=== PATIENT | male | born 1955 | race African-American/Black ===

== ENCOUNTER 2017-02-03 07:15 | Outpatient (CLI) | payer OTHER ==
--- NOTE | 2017-02-03 09:28 | ULT ---
EXAM: RENAL ULTRASOUND: COMPARISON: 07/20/16. HISTORY: Renal calculi. Followup examination. TECHNIQUE: Longitudinal and transverse imaging of the kidneys is performed. FINDINGS: RIGHT KIDNEY: Normal cortical echotexture. No hydronephrosis. The right kidney measures 11.9 x 6.1 x 5.2 cm. There is an anechoic focus emanating from the lower pole of the right kidney which may represent a s mall cyst measuring 1.4 x 1.0 x 1.1 cm. LEFT KIDNEY: Normal cortical echotexture. No hydronephrosis. The left kidney measures 11.6 x 5.5 x 4.5 cm. There is mass effect upon the floor of the urinary bladder due to enlarged prostate gland which nathan ures 6.6 x 5.1 x 5.5 cm. The urinary bladder mucosal is unremarkable. IMPRESSION: 1. No hydronephrosis. 2. Small cyst emanating from the lower pole of the right kidney. 3. Enlarged prostate gland. POS: [facility]
--- NOTE | 2017-02-03 09:41 | RAD ---
AP ABDOMINAL RADIOGRAPH: DATE: 02/03/17. HISTORY: Renal calculi and incomplete emptying of the urinary bladder. COMPARISON: 07/20/16. FINDINGS: No suspicious calcifications are seen overlying the expected location of the renal collecting system s or either ureter. Renal shadows are mostly obscured by overlying bowel and retained fecal materia l in the colon. Vascular calcifications are seen in the abdominal aorta and involving the iliac and femoral arteries. The bowel gas pattern is overall nonspecific. There has been no interval change compared to the prior exam. IMPRESSION: 1. No suspicious calcifications are seen to suggest renal or ureteral calculi on this exam. 2. A small to moderate amount of retained fecal material is seen throughout the colon, but the nj l gas pattern is otherwise nonspecific. POS: [facility]
== END 2017-02-03 07:16 | disposition home or self-care (01) ==
LOC: RAD 07:15
PROVIDERS: ATTEND Urology
DX: N20.0 Calculus of kidney (principal); N28.1 Cyst of kidney, acquired; K59.00 Constipation, unspecified; R33.9 Retention of urine, unspecified
CPT/HCPCS: 36415; 74000; 76770; 80048; 81001; 82570; 84153; 84156; 87086

== ENCOUNTER 2017-02-17 12:43 | Emergency (ER) | payer OTHER ==
--- NOTE | 2017-02-17 13:40 | RAD ---
RIGHT KNEE FOUR VIEWS: HISTORY: Knee pain. FINDINGS: Mild degenerative change. Joint spaces are preserved. No fracture. No joint effusion seen. IMPRESSION: Very mild degenerative changes are noted. POS: [facility]
[2017-02-17] MEDS ORDERED: HYDROcodone/Acetaminophen 10/325 mg Tablet ONE (14:08)
== END 2017-02-17 14:15 | disposition home or self-care (01) ==
LOC: ERS 12:43
DX: M25.461 Effusion, right knee (principal); E11.9 Type 2 diabetes mellitus without complications; E78.5 Hyperlipidemia, unspecified; I10 Essential (primary) hypertension; Z87.442 Personal history of urinary calculi

== ENCOUNTER 2017-09-23 21:29 | Emergency (ER) | payer BC | END 2017-09-23 21:45 | disposition home or self-care (01) | LOC: ERS 21:29 | DX: B02.9 Zoster without complications (principal); E11.9 Type 2 diabetes mellitus without complications; E78.5 Hyperlipidemia, unspecified; I10 Essential (primary) hypertension; Z79.899 Other long term (current) drug therapy | CPT/HCPCS: 99282 ==

== ENCOUNTER 2017-11-15 16:20 | Outpatient (CLI) | payer BC ==
--- NOTE | 2017-11-15 17:52 | RAD ---
ABDOMEN 1 VIEW: Date: 11/15/17 HISTORY: Abdominal pain. Renal stones. COMPARISON: 02/03/17. FINDINGS: Large amount of stool throughout the colon and rectum. Renal outlines, predominantly obscured. No uri nary tract calcifications are reliably demonstrated. Calcification over the vascular structures. IMPRESSION: 1. Constipation. 2. Atherosclerosis. POS: [facility]
== END 2017-11-15 16:21 | disposition home or self-care (01) ==
LOC: RAD 16:20
PROVIDERS: ATTEND Urology
DX: N20.0 Calculus of kidney (principal); N40.1 Benign prostatic hyperplasia with lower urinary tract symptoms; I70.90 Unspecified atherosclerosis; K59.00 Constipation, unspecified
CPT/HCPCS: 74018

== ENCOUNTER 2017-11-25 10:15 | Outpatient (CLI) | payer BC ==
--- NOTE | 2017-11-25 11:34 | ULT ---
RENAL SONOGRAM: HISTORY: Renal cyst. Chronic renal insufficiency. COMPARISON: 02/03/2017 FINDINGS: On today's exam, the right kidney is 12.4 cm. A 1.4 cm cyst along the lateral margin is stable. No hydronephrosis or solid mass. The left kidney is 12.3 cm without evidence of mass, stone, or hydronephrosis. The urinary bladder is decompressed. The prostate gland is enlarged and protrudes into the bladder b ase. IMPRESSION: 1. No evidence of upper urinary tract obstruction. Small right renal cyst is stable. 2. Enlarged prostate gland. POS: [facility]
== END 2017-11-25 10:16 | disposition home or self-care (01) ==
LOC: ULT 10:15
PROVIDERS: ATTEND Urology
DX: N18.9 Chronic kidney disease, unspecified (principal); N28.1 Cyst of kidney, acquired; N40.0 Benign prostatic hyperplasia without lower urinary tract symptoms
CPT/HCPCS: 76770

== ENCOUNTER 2018-01-07 13:17 | Emergency (ER) | payer BC ==
[2018-01-07 14:24] LABS: #Basophils 0.1 thou/uL (0.0-0.2); #Eosinphils 0.4 thou/uL (0.0-0.7); #Lymphocytes 2.8 thou/uL (1.20-3.40); #Monocytes 0.5 thou/uL (0.11-0.59); #Neutrophils 3.7 thou/uL (1.40-6.50); %Basophils 0.9 % (0.0-1.0); %Eosinophils 4.9 % (0.0-10.0); %Monocytes 7.1 % (0.0-10.0); %Neutrophils 50.1 % (42.0-75.0); Hemoglobin 12.1 g/dL (14.0-18.0); Mean Corpuscular HGB CONC 32.8 g/dL (32.0-36.0); Mean Corpuscular Volume 91.3 fL (78.0-98.0); Mean Platelet Volume 8.8 fL (7.4-10.4); Platelet Count 260 thou/uL (130-400); RBC Distribution Width 12.7 % (11.5-14.5); Red Blood Cell (RBC) Count 4.03 mill/uL (4.70-6.10); White Blood Cell (WBC) Count 7.5 thou/uL (4.8-10.8)
[2018-01-07 14:42] LABS: Bilirubin Negative (Negative); Blood, Urine Negative (Negative); Clarity CLEAR (Clear); Glucose, Urine (Dipstick) Negative (Negative); Leukocyte Negative (Negative); Nitrite Negative (Negative); Protein, Urine (Dipstick) 300 mg/dL (Neg-Trace); Specific Gravity, Urine 1.018 (1.002-1.036); Urobilinogen 0.2 mg/dL (0.2-1.0)
[2018-01-07 14:45] LABS: Bacteria/HPF None Seen HPF (None Seen); Hyaline Casts/LPF 0-3 HYALINE CAST LPF (0-3 Hyaline); Pathc Cast-AUWi Flag 0.58 (0-2.49); RBC/HPF 0-3 HPF (0-3); Squamous Epithelial 0-3 HPF (0-3); WBC/HPF 0-3 HPF (0-3)
[2018-01-07 14:46] LABS: ALT (SGPT) 17 U/L (8-55); AST (SGOT) 18 U/L (5-34); Albumin 3.8 g/dL (3.4-4.8); Alkaline Phosphatase 67 U/L (40-150); Anion Gap 13 mmol/L (10-20); BUN (Urea Nitrogen) 34 mg/dL (8.4-25.7); Bilirubin, Total 0.3 mg/dL (0.2-1.2); CK (CPK) 185 U/L (30-200); Calc. Creatinine Clearance 0 mL/min (70-130); Calcium 9.5 mg/dL (7.8-10.44); Carbon Dioxide 19 mmol/L (23-31); Chloride 108 mmol/L (98-107); Estimated GFR-MDRD 34; Globulin 3.5 g/dL (2.4-3.5); Glucose 178 mg/dL (80-115); Protein, Total 7.3 g/dL (5.8-8.1); Sodium 136 mmol/L (136-145)
[2018-01-07 14:52] LABS: CKMB 1.5 ng/mL (0-6.6); Troponin I 0.011 ng/mL (< 0.028)
--- NOTE | 2018-01-07 15:15 | RAD ---
ONE VIEW CHEST: HISTORY: Pain. COMPARISON: None. FINDINGS: Normal cardiac silhouette. The pulmonary vessels and hilum are normal. Costophrenic angles are lon r. The pulmonary vessels and hilum are normal. Costophrenic angles are clear. No consolidation or mass. No pneumothorax or osseous abnormalities. IMPRESSION: No acute cardiopulmonary process. POS: [facility]
== END 2018-01-07 15:10 | disposition home or self-care (01) ==
LOC: ERS 13:17
DX: S29.012A Strain of muscle and tendon of back wall of thorax, initial encounter (principal); E11.9 Type 2 diabetes mellitus without complications; E78.5 Hyperlipidemia, unspecified; I10 Essential (primary) hypertension; Z87.442 Personal history of urinary calculi; Z79.891 Long term (current) use of opiate analgesic; Z79.899 Other long term (current) drug therapy
CPT/HCPCS: 36415; 71045; 80053; 81003; 81015; 82550; 82553; 84443; 84484; 85025; 93005

== ENCOUNTER 2018-07-05 15:20 | Emergency (ER) | payer BC | END 2018-07-05 18:59 | disposition left against medical advice (07) | LOC: ERS 15:20 | DX: Z53.21 Procedure and treatment not carried out due to patient leaving prior to being seen by health care provider (principal) ==

== ENCOUNTER 2018-11-16 11:33 | Emergency (ER) | payer BC ==
[2018-11-16 12:26] LABS: #Eosinphils 0.5 thou/uL (0.0-0.7); #Lymphocytes 2.1 thou/uL (1.20-3.40); #Monocytes 0.5 thou/uL (0.11-0.59); #Neutrophils 4.8 thou/uL (1.40-6.50); %Basophils 0.5 % (0.0-1.0); %Eosinophils 6.6 % (0.0-10.0); %Lymphocytes 26.4 % (21.0-51.0); %Monocytes 6.4 % (0.0-10.0); %Neutrophils 60.1 % (42.0-75.0); Hemoglobin 11.5 g/dL (14.0-18.0); Mean Corpuscular HGB CONC 33.4 g/dL (32.0-36.0); Mean Corpuscular Hemoglobin 28.5 pg (27.0-31.0); Mean Corpuscular Volume 85.4 fL (78.0-98.0); Mean Platelet Volume 8.4 fL (7.4-10.4); Platelet Count 242 thou/uL (130-400); RBC Distribution Width 12.8 % (11.5-14.5); Red Blood Cell (RBC) Count 4.03 mill/uL (4.70-6.10)
[2018-11-16] MEDS ORDERED: Metoprolol Tartrate 25 MG TAB ONE (12:26)
[2018-11-16] MEDS ORDERED: hydrALAZINE 25 MG TAB ONE (12:26)
[2018-11-16 12:56] LABS: ALT (SGPT) 16 U/L (8-55); AST (SGOT) 20 U/L (5-34); Albumin 3.2 g/dL (3.4-4.8); Alkaline Phosphatase 84 U/L (40-150); Anion Gap 11 mmol/L (10-20); BUN (Urea Nitrogen) 30 mg/dL (8.4-25.7); Bilirubin, Total 0.2 mg/dL (0.2-1.2); Calc. Creatinine Clearance 0 mL/min (70-130); Calcium 8.8 mg/dL (7.8-10.44); Carbon Dioxide 22 mmol/L (23-31); Chloride 109 mmol/L (98-107); Estimated GFR-MDRD 32; Globulin 2.8 g/dL (2.4-3.5); Glucose 219 mg/dL (80-115); Potassium 3.9 mmol/L (3.5-5.1); Sodium 138 mmol/L (136-145)
--- NOTE | 2018-11-16 13:02 | RAD ---
RADIOGRAPH CHEST 1 VIEW: DATE: 11/16/18 HISTORY: 63-year-old male with chest pain. FINDINGS: There are no air space densities, pulmonary edema, pneumothorax, or cardiomegaly. The lateral costop hrenic angles are sharp. IMPRESSION: No acute cardiopulmonary findings. tarun [] POS: [facility]
[2018-11-16 13:58] LABS: Bilirubin Negative (Negative); Blood, Urine Trace (Negative); Clarity Clear (Clear); Glucose, Urine (Dipstick) 250 mg/dL (Negative); Leukocyte Negative (Negative); Nitrite Negative (Negative); Protein, Urine (Dipstick) > or equal to 300 mg/dL (Neg-Trace); Urobilinogen 0.2 mg/dL (Less than 2)
[2018-11-16 14:05] LABS: Bacteria/HPF None Seen HPF (None Seen); RBC/HPF 0-3 HPF (0-3); Squamous Epithelial 0-3 HPF (0-3); WBC/HPF None Seen HPF (0-3)
== END 2018-11-16 14:14 | disposition home or self-care (01) ==
LOC: ERS 11:33
DX: E11.65 Type 2 diabetes mellitus with hyperglycemia (principal); I10 Essential (primary) hypertension; E78.5 Hyperlipidemia, unspecified; Z79.899 Other long term (current) drug therapy; Z79.82 Long term (current) use of aspirin
CPT/HCPCS: 36415; 36416; 71045; 80053; 81003; 81015; 83690; 84484; 85025; 93005

== ENCOUNTER 2019-07-06 10:06 | Outpatient (CLI) | payer BC ==
--- NOTE | 2019-07-06 11:31 | RAD ---
RIGHT KNEE 3 VIEWS: HISTORY: Generalized osteoarthritis, right knee pain. FINDINGS/IMPRESSION: Mild degenerative changes are present. No fracture, dislocation, or bony destruction is identified. POS: [facility]
--- NOTE | 2019-07-06 11:32 | RAD ---
LEFT KNEE 3 VIEWS: HISTORY: Generalized osteoarthritis and left knee pain. FINDINGS/IMPRESSION: Minimal degenerative changes are present. No fracture, dislocation, or bony destruction is seen. POS: [facility]
== END 2019-07-06 10:07 | disposition home or self-care (01) ==
LOC: RAD 10:06
PROVIDERS: ATTEND Internal Medicine Nephrology
DX: M17.0 Bilateral primary osteoarthritis of knee (principal); R97.20 Elevated prostate specific antigen [PSA]; N18.9 Chronic kidney disease, unspecified; N20.0 Calculus of kidney; N28.1 Cyst of kidney, acquired
CPT/HCPCS: 36415; 80048; 81001; 87086

== ENCOUNTER 2019-10-05 07:30 | Outpatient (CLI) | payer BC ==
--- NOTE | 2019-10-05 08:15 | RAD ---
MRI clearance study: Radiograph skull one view: 10/05/2019 HISTORY: 64-year-old male scheduled for MRI with history of metal exposure. FINDINGS: Single Simental' view demonstrates no metallic foreign body overlying the orbits. IMPRESSION: No evidence of contraindication for MRI
--- NOTE | 2019-10-05 08:52 | MRI ---
MRI LEFT KNEE: DATE: 10/05/2019. PROVIDED CLINICAL HISTORY: Pain. FINDINGS: The anterior cruciate ligament, posterior cruciate ligament, medial collateral ligament, and lateral collateral ligamentous complex demonstrate an intact MR appearance, as does the extensor mechanism. There is a complex nondisplaced tear involving the body of the medial meniscus, having a primarily ob lique morphology. The lateral meniscus demonstrates no evidence for a tear. No focal articular cartilage defect is apparent. There is a large knee joint effusion with evidence for ruptured Hadley's cyst. No focal concerning regional marrow or muscular signal abnormality apparent. There is extensive noncircumscribed fluid signal intensity within the subcutaneous adipose layer abou t the visualized proximal foreleg, presumably lymphedema. IMPRESSION: 1. Medial meniscal tear. 2. Large knee joint effusion with ruptured Hadley's cyst. POS: [facility]
== END 2019-10-05 07:31 | disposition home or self-care (01) ==
LOC: BICMRI 07:30
PROVIDERS: ATTEND Orthopaedic Surgery
DX: M23.92 Unspecified internal derangement of left knee (principal); S83.242A Other tear of medial meniscus, current injury, left knee, initial encounter; M66.0 Rupture of popliteal cyst; M25.462 Effusion, left knee
CPT/HCPCS: 70210

== ENCOUNTER 2019-11-07 06:55 | Outpatient (CLI) | payer BC ==
--- NOTE | 2019-11-07 07:48 | ULT ---
Renal sonogram HISTORY: Renal cyst. COMPARISON: 05/01/2019. Right kidney is 11.1 cm length. Cyst at the mid portion of the kidney is 1.5 cm greatest diameter, un changed from the previous exam. No hydronephrosis or solid mass. Left kidney is 11.1 cm with a normal appearance. Prostate gland measures up to 6.8 cm diameter and impresses upon the inferior aspect of the incomplet byron distended urinary bladder. No focal bladder abnormalities otherwise demonstrated. IMPRESSION : Right renal cyst, stable. Enlarged prostate gland.
--- NOTE | 2019-11-07 08:27 | RAD ---
EXAM: Single view of the abdomen HISTORY: Renal calculi COMPARISON: 11/15/2017 FINDINGS: Single view of the abdomen shows a nonspecific, nonobstructive bowel gas pattern. No suspi cious calcifications are seen. The bones are unremarkable. IMPRESSION: Unremarkable exam
== END 2019-11-07 06:56 | disposition home or self-care (01) ==
LOC: BICULT 06:55
PROVIDERS: ATTEND Urology
DX: N20.0 Calculus of kidney (principal); N28.1 Cyst of kidney, acquired; N40.0 Benign prostatic hyperplasia without lower urinary tract symptoms
CPT/HCPCS: 36415; 74018; 76770; 80048; 81001; 84153; 84550; 87086

== ENCOUNTER 2020-02-12 10:15 | Outpatient (CLI) | payer BC ==
--- NOTE | 2020-02-12 10:50 | ULT ---
Exam: Thyroid ultrasound HISTORY: Evaluate thyroid nodule COMPARISON: None FINDINGS: Thyroid isthmus: 0.64 cm Right thyroid lobe: 1.9 x 2.1 x 4.3 cm Left thyroid lobe: 5.2 x 2.8 x 2.6 cm Thyroid nodules: Left thyroid lobe: Isoechoic solid nodule in the midpole the left thyroid lobe with well-circumscribe d margins measuring 1.1 x 1.0 x 1.2 cm. No additional nodules in the thyroid gland IMPRESSION: 1. Solid nodule in the left thyroid lobe. TI-RADS level: TR 3. Mildly suspicious. 1 year follow-up ultrasound.
== END 2020-02-12 10:16 | disposition home or self-care (01) ==
LOC: BICULT 10:15
PROVIDERS: ATTEND Internal Medicine
DX: E04.1 Nontoxic single thyroid nodule (principal)
CPT/HCPCS: 76536

== ENCOUNTER 2020-09-26 10:09 | Inpatient (IN) | payer BC ==
[~2020-09-26 10:09] MED LIST: Heparin 10,000 UNITS/ 10 ML VIAL ONE
[2020-09-26 12:32] LABS: #Eosinphils 0.4 thou/uL (0.0-0.7); #Lymphocytes 1.5 thou/uL (1.20-3.40); #Monocytes 0.6 thou/uL (0.11-0.59); #Neutrophils 3.8 thou/uL (1.40-6.50); %Basophils 0.4 % (0.0-1.0); %Lymphocytes 23.7 % (21.0-51.0); %Neutrophils 60.9 % (42.0-75.0); Hemoglobin 7.7 g/dL (14.0-18.0); Mean Corpuscular HGB CONC 32.5 g/dL (32.0-36.0); Mean Corpuscular Hemoglobin 29.4 pg (27.0-31.0); Mean Corpuscular Volume 90.5 fL (78.0-98.0); Platelet Count 177 thou/uL (130-400); RBC Distribution Width 14.5 % (11.5-14.5); Red Blood Cell (RBC) Count 2.62 mill/uL (4.70-6.10); White Blood Cell (WBC) Count 6.2 thou/uL (4.8-10.8)
[2020-09-26 12:57] LABS: ALT (SGPT) 19 U/L (8-55); AST (SGOT) 28 U/L (5-34); Albumin 3.7 g/dL (3.4-4.8); Alkaline Phosphatase 73 U/L (40-110); Anion Gap 13 mmol/L (10-20); BUN (Urea Nitrogen) 67 mg/dL (8.4-25.7); Bilirubin, Total 0.2 mg/dL (0.2-1.2); Calc. Creatinine Clearance 0 mL/min (70-130); Calcium 9.2 mg/dL (7.8-10.44); Carbon Dioxide 19 mmol/L (23-31); Chloride 115 mmol/L (98-107); Globulin 3.3 g/dL (2.4-3.5); Glucose 117 mg/dL (80-115); Potassium 4.7 mmol/L (3.5-5.1); Sodium 142 mmol/L (136-145)
[2020-09-26 13:17] LABS: Magnesium 2.1 mg/dL (1.6-2.6)
[2020-09-26] MEDS ORDERED: Heparin 10,000 UNITS/ 10 ML VIAL ONE (14:56)
[2020-09-26] MEDS ORDERED: EPINEPHrine 1 MG/ML AMP ONE (14:56)
[2020-09-26] MEDS ORDERED: Sodium Chloride 0.9% 30 ML ONE ×2 (14:56→16:39)
[2020-09-26] MEDS ORDERED: Bupivacaine PF 0.5% 30 ML VIAL ONE (14:56)
[2020-09-26] MEDS ORDERED: Fentanyl 100 MCG/2 ML VIAL ONE (15:04)
[2020-09-26 15:23] LABS: HBSAB Concentration Less than 8.00 mIU/mL; HBSAg Index 0.49 S/CO (0-0.99); Hep B Core Total Ab Non-Reactive (NonReactive); Hep B Core Total Index 0.15 S/CO (0-0.79); Hep B Surf AB Non-Reactive (NonReactive); Hep B Surf Ag Non-Reactive S/CO (NonReactive); Hep C IgG Ab Non-Reactive (NonReactive); Hep C Index 0.12 S/CO (0-0.79)
[2020-09-26 15:35] LABS: SARS-CoV-2 NAA Rapid Test Not Detected (NotDetected)
[2020-09-26] MEDS ORDERED: Midazolam HCl 2 mg/2 ml Vial ONE ×2 (16:14→16:18)
[2020-09-26] MEDS ORDERED: Ketamine 50 MG/ML (10ML VIAL) ONE (16:18)
[2020-09-26] MEDS ORDERED: Levofloxacin 500 mg/D5W 100 ml Premix Bag ONE (16:28)
[2020-09-26] MEDS ORDERED: Acetaminophen 500 MG TAB PO PRN (17:12)
[2020-09-26] MEDS ORDERED: traMADol HCl 50 MG TAB PO PRN (17:12)
[2020-09-26] MEDS ORDERED: Calcium Carbonate 500 MG ChewTAB PO PRN (17:40)
[2020-09-26] MEDS ORDERED: Acetaminophen 325 MG TAB PO PRN (17:40)
[2020-09-26] MEDS ORDERED: Ondansetron PF 4 MG/2 ML Vial IVP PRN (17:40)
[2020-09-26] MEDS ORDERED: Dextrose 5% in Water 1,000 ML IV PRN (17:43)
[2020-09-26] MEDS ORDERED: Dextrose 50% Abboject 50 ML SYRINGE SLOW IVP PRN (17:43)
[2020-09-26] MEDS ORDERED: Insulin Regular 300 UNITS/3 ML VIAL SC PRN ×2 (17:43)
[2020-09-26] MEDS ORDERED: Nitroglycerin 0.4 MG TAB (25 Tab Bottle) SL SCH (19:15)
[2020-09-26 20:28] VITALS: BMI 38.5
[2020-09-26] MEDS ORDERED: Famotidine 20 MG TAB PO SCH (21:00)
[2020-09-26] MEDS ORDERED: traMADol HCl 50 MG TAB PO SCH (21:00)
[2020-09-26] MEDS: Gabapentin 100 MG CAP PO SCH (21:04)
[2020-09-26] MEDS: Cholecalciferol 1,000 UNITS (25 MCG) TAB PO SCH (21:04)
[2020-09-26] MEDS: Tamsulosin HCl 0.4 MG CAP PO SCH (21:04)
[2020-09-26] MEDS: Heparin 5,000 UNITS/ML VIAL SC SCH (21:04)
[2020-09-26] MEDS: Metoprolol Tartrate 25 MG TAB PO SCH (21:05)
[2020-09-26] MEDS: hydrALAZINE 25 MG TAB PO SCH (21:05)
[2020-09-26] MEDS: Famotidine 20 MG TAB PO SCH (21:05)
[2020-09-26] MEDS: Rosuvastatin 10 MG TAB PO SCH (21:12)
[2020-09-26] MEDS: Senokot S 8.6-50 MG TAB PO SCH (21:12)
[2020-09-26] MEDS: Doxazosin Mesylate 4 MG TAB PO SCH (21:13)
[2020-09-26] MEDS: Tuberculin PPD 0.1 ML VIAL I-DERMAL SCH (21:51)
[2020-09-26 21:57] LABS: SARS-CoV-2 IgG Ab Non-Reactive (NonReactive); SARS-CoV-2 IgG Index 0.23 S/CO (< 1.40)
[2020-09-27] MEDS: hydrALAZINE 20 MG/ML VIAL SLOW IVP PRN ×4 (01:07→19:16)
[2020-09-27 05:30] LABS: #Basophils 0.1 thou/uL (0.0-0.2); #Eosinphils 0.3 thou/uL (0.0-0.7); #Lymphocytes 1.4 thou/uL (1.20-3.40); #Monocytes 0.6 thou/uL (0.11-0.59); %Basophils 0.9 % (0.0-1.0); %Lymphocytes 21.8 % (21.0-51.0); %Monocytes 9.3 % (0.0-10.0); Hemoglobin 7.4 g/dL (14.0-18.0); Mean Corpuscular HGB CONC 31.6 g/dL (32.0-36.0); Mean Corpuscular Hemoglobin 28.3 pg (27.0-31.0); Mean Corpuscular Volume 89.6 fL (78.0-98.0); Mean Platelet Volume 8.6 fL (7.4-10.4); Platelet Count 173 thou/uL (130-400); RBC Distribution Width 14.7 % (11.5-14.5); Red Blood Cell (RBC) Count 2.61 mill/uL (4.70-6.10); White Blood Cell (WBC) Count 6.4 thou/uL (4.8-10.8)
[2020-09-27 05:58] LABS: Anion Gap 9 mmol/L (10-20); BUN (Urea Nitrogen) 51 mg/dL (8.4-25.7); Calc. Creatinine Clearance 28 mL/min (70-130); Calcium 8.9 mg/dL (7.8-10.44); Carbon Dioxide 24 mmol/L (23-31); Chloride 113 mmol/L (98-107); Glucose 131 mg/dL (80-115); Potassium 4.1 mmol/L (3.5-5.1); Sodium 142 mmol/L (136-145)
[2020-09-27] MEDS ORDERED: Heparin 10,000 UNITS/ 10 ML VIAL ONE (09:13)
[2020-09-27] MEDS: EPOETIN ALFA-EPBX (ESRD) 10,000 UNIT/ML VIAL IVP SCH (09:33)
[2020-09-27] MEDS: Citrucel 500 MG TAB PO SCH (11:26)
[2020-09-27] MEDS: Amlodipine 10 MG TAB PO SCH (11:26)
[2020-09-27] MEDS: hydrALAZINE 25 MG TAB PO SCH ×3 (11:26→20:19)
[2020-09-27] MEDS: Minoxidil 2.5 MG TAB PO SCH (11:27)
[2020-09-27] MEDS: Aspirin 81 mg Enteric Coated Tablet PO SCH (11:27)
[2020-09-27] MEDS: Metoprolol Tartrate 25 MG TAB PO SCH ×2 (11:27→20:20)
[2020-09-27] MEDS: Gabapentin 100 MG CAP PO SCH ×2 (11:27→20:19)
[2020-09-27] MEDS: Dutasteride 0.5 MG CAP PO SCH (11:27)
[2020-09-27] MEDS: Multivitamin W/ Minerals 1 TAB PO SCH (11:27)
[2020-09-27] MEDS: Senokot S 8.6-50 MG TAB PO SCH ×2 (13:47→20:19)
[2020-09-27] MEDS: Cholecalciferol 1,000 UNITS (25 MCG) TAB PO SCH ×2 (13:47→20:20)
[2020-09-27] MEDS: Doxazosin Mesylate 4 MG TAB PO SCH ×2 (13:47→20:22)
[2020-09-27] MEDS: Heparin 5,000 UNITS/ML VIAL SC SCH ×2 (13:47→20:19)
[2020-09-27] MEDS: Polyethylene Glycol 3350 17 GM Packet PO SCH (14:42)
[2020-09-27] MEDS: traMADol HCl 50 MG TAB PO PRN (17:29)
[2020-09-27] MEDS: Ondansetron ODT 4 MG TAB PO PRN (17:42)
[2020-09-27] MEDS: Tamsulosin HCl 0.4 MG CAP PO SCH (20:19)
[2020-09-27] MEDS: Rosuvastatin 10 MG TAB PO SCH (20:19)
[2020-09-27] MEDS: Famotidine 20 MG TAB PO SCH (20:20)
[2020-09-27] MEDS: Tuberculin PPD 0.1 ML VIAL I-DERMAL SCH (21:10)
[2020-09-28] MEDS ORDERED: Milk Of Magnesia 30 ML UDCUP PO PRN (00:46)
[2020-09-28] MEDS: hydrALAZINE 20 MG/ML VIAL SLOW IVP PRN (01:10)
[2020-09-28 04:20] LABS: #Eosinphils 0.3 thou/uL (0.0-0.7); #Lymphocytes 1.7 thou/uL (1.20-3.40); #Monocytes 0.7 thou/uL (0.11-0.59); %Basophils 0.4 % (0.0-1.0); %Eosinophils 3.1 % (0.0-10.0); %Lymphocytes 19.4 % (21.0-51.0); %Monocytes 8.2 % (0.0-10.0); Hemoglobin 9.1 g/dL (14.0-18.0); Mean Corpuscular HGB CONC 32.4 g/dL (32.0-36.0); Mean Corpuscular Hemoglobin 29.7 pg (27.0-31.0); Mean Corpuscular Volume 91.7 fL (78.0-98.0); Mean Platelet Volume 8.8 fL (7.4-10.4); Platelet Count 185 thou/uL (130-400); RBC Distribution Width 15.3 % (11.5-14.5); Red Blood Cell (RBC) Count 3.07 mill/uL (4.70-6.10); White Blood Cell (WBC) Count 8.7 thou/uL (4.8-10.8)
[2020-09-28 04:35] LABS: Anion Gap 17 mmol/L (10-20); BUN (Urea Nitrogen) 34 mg/dL (8.4-25.7); Calc. Creatinine Clearance 29 mL/min (70-130); Calcium 8.8 mg/dL (7.8-10.44); Carbon Dioxide 21 mmol/L (23-31); Chloride 107 mmol/L (98-107); Glucose 113 mg/dL (80-115); Potassium 4.2 mmol/L (3.5-5.1); Sodium 141 mmol/L (136-145)
[2020-09-28] MEDS: Gabapentin 100 MG CAP PO SCH ×2 (09:07→21:35)
[2020-09-28] MEDS: hydrALAZINE 25 MG TAB PO SCH ×3 (09:07→21:35)
[2020-09-28] MEDS: Multivitamin W/ Minerals 1 TAB PO SCH (09:08)
[2020-09-28] MEDS: Dutasteride 0.5 MG CAP PO SCH (09:08)
[2020-09-28] MEDS: Amlodipine 10 MG TAB PO SCH (09:08)
[2020-09-28] MEDS: Cholecalciferol 1,000 UNITS (25 MCG) TAB PO SCH ×2 (09:09→21:34)
[2020-09-28] MEDS: Metoprolol Tartrate 25 MG TAB PO SCH ×2 (09:09→21:34)
[2020-09-28] MEDS: Aspirin 81 mg Enteric Coated Tablet PO SCH (09:09)
[2020-09-28] MEDS: Doxazosin Mesylate 4 MG TAB PO SCH ×2 (09:09→21:37)
[2020-09-28] MEDS: Senokot S 8.6-50 MG TAB PO SCH ×2 (09:09→21:36)
[2020-09-28] MEDS: Citrucel 500 MG TAB PO SCH (09:09)
[2020-09-28] MEDS: Minoxidil 2.5 MG TAB PO SCH (09:09)
[2020-09-28] MEDS: Polyethylene Glycol 3350 17 GM Packet PO SCH (09:10)
[2020-09-28] MEDS: Heparin 5,000 UNITS/ML VIAL SC SCH ×2 (09:10→21:36)
[2020-09-28] MEDS: Tamsulosin HCl 0.4 MG CAP PO SCH (21:34)
[2020-09-28] MEDS: Rosuvastatin 10 MG TAB PO SCH (21:34)
[2020-09-28] MEDS: Famotidine 20 MG TAB PO SCH (21:36)
[2020-09-28] MEDS: Tuberculin PPD 0.1 ML VIAL I-DERMAL SCH (21:49)
[2020-09-29] MEDS: READ PPD TEST SITE PO SCH ×2 (00:32→23:07)
[2020-09-29] MEDS: hydrALAZINE 20 MG/ML VIAL SLOW IVP PRN ×3 (05:20→17:49)
[2020-09-29] MEDS: Heparin 5,000 UNITS/ML VIAL SC SCH ×2 (09:26→20:18)
[2020-09-29] MEDS: Doxazosin Mesylate 4 MG TAB PO SCH ×2 (09:27→20:16)
[2020-09-29] MEDS: Aspirin 81 mg Enteric Coated Tablet PO SCH (09:28)
[2020-09-29] MEDS: Gabapentin 100 MG CAP PO SCH ×2 (09:28→20:17)
[2020-09-29] MEDS: Senokot S 8.6-50 MG TAB PO SCH ×2 (09:28→20:18)
[2020-09-29] MEDS: Multivitamin W/ Minerals 1 TAB PO SCH (09:29)
[2020-09-29] MEDS: Dutasteride 0.5 MG CAP PO SCH (09:29)
[2020-09-29] MEDS: hydrALAZINE 25 MG TAB PO SCH ×3 (09:29→20:17)
[2020-09-29] MEDS: Citrucel 500 MG TAB PO SCH (09:29)
[2020-09-29] MEDS: Minoxidil 2.5 MG TAB PO SCH (09:29)
[2020-09-29] MEDS: Cholecalciferol 1,000 UNITS (25 MCG) TAB PO SCH ×2 (09:30→20:16)
[2020-09-29] MEDS: Amlodipine 10 MG TAB PO SCH (09:30)
[2020-09-29] MEDS: Metoprolol Tartrate 25 MG TAB PO SCH ×2 (09:30→20:17)
[2020-09-29] MEDS: Polyethylene Glycol 3350 17 GM Packet PO SCH (09:31)
[2020-09-29] MEDS ORDERED: Allopurinol 100 MG TAB PO SCH (09:45)
[2020-09-29] MEDS ORDERED: Bisacodyl 5 MG TAB PO SCH (09:45)
[2020-09-29 12:37] LABS: Anion Gap 13 mmol/L (10-20); BUN (Urea Nitrogen) 38 mg/dL (8.4-25.7); Calc. Creatinine Clearance 23 mL/min (70-130); Calcium 9.2 mg/dL (7.8-10.44); Carbon Dioxide 25 mmol/L (23-31); Chloride 105 mmol/L (98-107); Glucose 126 mg/dL (80-115); Potassium 4.3 mmol/L (3.5-5.1); Sodium 139 mmol/L (136-145)
[2020-09-29] MEDS ORDERED: Magnesium Citrate 300 ML BOT PO SCH (17:15)
[2020-09-29] MEDS: Rosuvastatin 10 MG TAB PO SCH (20:17)
[2020-09-29] MEDS: Famotidine 20 MG TAB PO SCH (20:18)
[2020-09-29] MEDS: Tamsulosin HCl 0.4 MG CAP PO SCH (20:18)
[2020-09-29] MEDS: traMADol HCl 50 MG TAB PO PRN (20:25)
[2020-09-29] MEDS: Tuberculin PPD 0.1 ML VIAL I-DERMAL SCH (23:06)
[2020-09-30] MEDS: hydrALAZINE 20 MG/ML VIAL SLOW IVP PRN ×2 (00:24→18:02)
[2020-09-30] MEDS ORDERED: Fluticasone Propionate Nasal Spray 16 gm Bottle NASAL SCH (03:00)
[2020-09-30] MEDS: Metoprolol Tartrate 25 MG TAB PO SCH (05:51)
[2020-09-30] MEDS ORDERED: Fentanyl 100 MCG/2 ML VIAL ONE (06:13)
[2020-09-30 06:15] LABS: #Eosinphils 0.5 thou/uL (0.0-0.7); #Lymphocytes 2.2 thou/uL (1.20-3.40); #Monocytes 0.9 thou/uL (0.11-0.59); #Neutrophils 7.3 thou/uL (1.40-6.50); %Basophils 0.5 % (0.0-1.0); %Eosinophils 4.4 % (0.0-10.0); %Lymphocytes 19.8 % (21.0-51.0); %Monocytes 7.9 % (0.0-10.0); %Neutrophils 67.5 % (42.0-75.0); Hemoglobin 6.4 g/dL (14.0-18.0); Mean Corpuscular HGB CONC 33.4 g/dL (32.0-36.0); Mean Corpuscular Hemoglobin 30.6 pg (27.0-31.0); Mean Corpuscular Volume 91.8 fL (78.0-98.0); Mean Platelet Volume 8.4 fL (7.4-10.4); Platelet Count 195 thou/uL (130-400); RBC Distribution Width 15.2 % (11.5-14.5); White Blood Cell (WBC) Count 10.9 thou/uL (4.8-10.8)
[2020-09-30] MEDS ORDERED: Protamine Sulfate 50 MG/5 ML VIAL ONE (06:30)
[2020-09-30] MEDS ORDERED: Ioversol 68 % 50 ML VIAL ONE (06:30)
[2020-09-30] MEDS ORDERED: Heparin 5,000 UNITS/ML VIAL ONE (06:30)
[2020-09-30] MEDS ORDERED: Lidocaine 1% w/Epinephrine 1:100K 20 ML VIAL ONE (06:30)
[2020-09-30] MEDS ORDERED: Bupivacaine PF 0.5% 30 ML VIAL ONE (06:30)
[2020-09-30 06:34] LABS: Anion Gap 12 mmol/L (10-20); BUN (Urea Nitrogen) 42 mg/dL (8.4-25.7); Calc. Creatinine Clearance 23 mL/min (70-130); Calcium 9.4 mg/dL (7.8-10.44); Carbon Dioxide 26 mmol/L (23-31); Chloride 105 mmol/L (98-107); Glucose 106 mg/dL (80-115); Potassium 4.3 mmol/L (3.5-5.1); Sodium 139 mmol/L (136-145)
[2020-09-30] MEDS ORDERED: Levofloxacin 500 mg/D5W 100 ml Premix Bag ONE (06:54)
[2020-09-30] MEDS ORDERED: ePHEDrine Sulfate 50 MG/10 ML VIAL ONE (07:34)
[2020-09-30] MEDS ORDERED: Ondansetron PF 4 MG/2 ML Vial ONE (07:34)
[2020-09-30] MEDS ORDERED: PHENYLEPHRINE-NS 100 MCG/ML 10 ML SYRINGE ONE (07:34)
[2020-09-30] MEDS ORDERED: PROPOFOL 200 MG/20 ML VIAL ONE (07:34)
[2020-09-30] MEDS ORDERED: Lidocaine 1% PF 5 ML VIAL ONE (07:34)
[2020-09-30] MEDS ORDERED: Dexamethasone 20 MG/5 ML VIAL ONE (07:34)
[2020-09-30] MEDS ORDERED: Heparin 10,000 UNITS/ 10 ML VIAL ONE (08:48)
[2020-09-30] MEDS: hydrALAZINE 25 MG TAB PO SCH ×3 (11:34→20:51)
[2020-09-30] MEDS: EPOETIN ALFA-EPBX (ESRD) 10,000 UNIT/ML VIAL IVP SCH (12:34)
[2020-09-30] MEDS: Gabapentin 100 MG CAP PO SCH ×2 (14:28→20:53)
[2020-09-30] MEDS: Amlodipine 10 MG TAB PO SCH (14:29)
[2020-09-30] MEDS: Minoxidil 2.5 MG TAB PO SCH (14:29)
[2020-09-30] MEDS: Cholecalciferol 1,000 UNITS (25 MCG) TAB PO SCH ×2 (14:30→20:52)
[2020-09-30] MEDS: Allopurinol 100 MG TAB PO SCH (14:30)
[2020-09-30] MEDS: Dutasteride 0.5 MG CAP PO SCH (14:30)
[2020-09-30] MEDS: Multivitamin W/ Minerals 1 TAB PO SCH (14:30)
[2020-09-30] MEDS: Citrucel 500 MG TAB PO SCH (14:30)
[2020-09-30] MEDS: Aspirin 81 mg Enteric Coated Tablet PO SCH (14:30)
[2020-09-30] MEDS: Polyethylene Glycol 3350 17 GM Packet PO SCH (14:31)
[2020-09-30] MEDS: Senokot S 8.6-50 MG TAB PO SCH ×2 (14:31→20:54)
[2020-09-30] MEDS: Heparin 5,000 UNITS/ML VIAL SC SCH ×2 (14:31→20:51)
[2020-09-30] MEDS: Doxazosin Mesylate 4 MG TAB PO SCH ×2 (15:01→20:51)
[2020-09-30] MEDS: Tamsulosin HCl 0.4 MG CAP PO SCH (20:51)
[2020-09-30] MEDS: Metoprolol Tartrate 50 MG TAB PO SCH (20:52)
[2020-09-30] MEDS: Ondansetron ODT 4 MG TAB PO PRN (20:52)
[2020-09-30] MEDS: Rosuvastatin 10 MG TAB PO SCH (20:52)
[2020-09-30] MEDS: traMADol HCl 50 MG TAB PO PRN (20:53)
[2020-09-30] MEDS: Famotidine 20 MG TAB PO SCH (20:53)
[2020-10-01 05:18] LABS: #Basophils 0.1 thou/uL (0.0-0.2); #Lymphocytes 1.9 thou/uL (1.20-3.40); %Basophils 0.5 % (0.0-1.0); %Eosinophils 0.3 % (0.0-10.0); %Lymphocytes 15.8 % (21.0-51.0); %Monocytes 8.6 % (0.0-10.0); %Neutrophils 74.9 % (42.0-75.0); Hemoglobin 9.7 g/dL (14.0-18.0); Mean Corpuscular HGB CONC 31.5 g/dL (32.0-36.0); Mean Corpuscular Hemoglobin 29.2 pg (27.0-31.0); Mean Corpuscular Volume 92.8 fL (78.0-98.0); Mean Platelet Volume 8.9 fL (7.4-10.4); Platelet Count 190 thou/uL (130-400); RBC Distribution Width 14.9 % (11.5-14.5); Red Blood Cell (RBC) Count 3.32 mill/uL (4.70-6.10)
[2020-10-01 05:46] LABS: Anion Gap 15 mmol/L (10-20); BUN (Urea Nitrogen) 33 mg/dL (8.4-25.7); Calc. Creatinine Clearance 25 mL/min (70-130); Carbon Dioxide 27 mmol/L (23-31); Chloride 99 mmol/L (98-107); Glucose 169 mg/dL (80-115); Potassium 4.1 mmol/L (3.5-5.1); Sodium 137 mmol/L (136-145)
[2020-10-01] MEDS: Multivitamin W/ Minerals 1 TAB PO SCH (08:12)
[2020-10-01] MEDS: Citrucel 500 MG TAB PO SCH (08:12)
[2020-10-01] MEDS: Senokot S 8.6-50 MG TAB PO SCH (08:12)
[2020-10-01] MEDS: Cholecalciferol 1,000 UNITS (25 MCG) TAB PO SCH (08:12)
[2020-10-01] MEDS: Minoxidil 2.5 MG TAB PO SCH (08:12)
[2020-10-01] MEDS: Gabapentin 100 MG CAP PO SCH (08:12)
[2020-10-01] MEDS: Allopurinol 100 MG TAB PO SCH (08:13)
[2020-10-01] MEDS: Doxazosin Mesylate 4 MG TAB PO SCH (08:13)
[2020-10-01] MEDS: Dutasteride 0.5 MG CAP PO SCH (08:13)
[2020-10-01] MEDS: Amlodipine 10 MG TAB PO SCH (08:13)
[2020-10-01] MEDS: Metoprolol Tartrate 50 MG TAB PO SCH (08:13)
[2020-10-01] MEDS: hydrALAZINE 25 MG TAB PO SCH (08:13)
[2020-10-01] MEDS: Polyethylene Glycol 3350 17 GM Packet PO SCH (08:13)
[2020-10-01] MEDS: Aspirin 81 mg Enteric Coated Tablet PO SCH (08:13)
[2020-10-01] MEDS: Heparin 5,000 UNITS/ML VIAL SC SCH (08:13)
[2020-10-01] MEDS ORDERED: Fluticasone Propionate Nasal Spray 16 gm Bottle NASAL SCH (09:00)
[2020-10-01] MEDS: traMADol HCl 50 MG TAB PO PRN (12:09)
[2020-10-01 12:16] VITALS: BP 153/70; TEMP 98.4
== END 2020-10-01 14:02 | disposition home or self-care (01) | DRG 673 ==
LOC: ERS 10:09 → SDC 15:27 → 2NO 15:30
PROVIDERS: ADMIT Internal Medicine; ATTEND Internal Medicine
PROC: 0JH63XZ Insertion of Tunneled Vascular Access Device into Chest Subcutaneous Tissue and Fascia, Percutaneous Approach (ICD-10-PCS; 2020-09-26)
PROC: 02HV33Z Insertion of Infusion Device into Superior Vena Cava, Percutaneous Approach (ICD-10-PCS; 2020-09-26)
PROC: 5A1D70Z Performance of Urinary Filtration, Intermittent, Less than 6 Hours Per Day (ICD-10-PCS; 2020-09-26)
PROC: 30233N1 Transfusion of Nonautologous Red Blood Cells into Peripheral Vein, Percutaneous Approach (ICD-10-PCS; 2020-09-27)
PROC: 031C0ZF Bypass Left Radial Artery to Lower Arm Vein, Open Approach (ICD-10-PCS; principal; 2020-09-30)
DX: I12.0 Hypertensive chronic kidney disease with stage 5 chronic kidney disease or end stage renal disease (principal); N18.6 End stage renal disease; N17.9 Acute kidney failure, unspecified; E87.2 Acidosis; E87.70 Fluid overload, unspecified; E11.22 Type 2 diabetes mellitus with diabetic chronic kidney disease; Z20.822 Contact with and (suspected) exposure to COVID-19; E78.5 Hyperlipidemia, unspecified; E78.00 Pure hypercholesterolemia, unspecified; M10.9 Gout, unspecified; N40.0 Benign prostatic hyperplasia without lower urinary tract symptoms; E11.42 Type 2 diabetes mellitus with diabetic polyneuropathy; E66.9 Obesity, unspecified; D63.1 Anemia in chronic kidney disease; Z79.82 Long term (current) use of aspirin; Z79.899 Other long term (current) drug therapy; Z87.891 Personal history of nicotine dependence; Z68.38 Body mass index [BMI] 38.0-38.9, adult
CPT/HCPCS: 36415; 36416; 36430; 71045; 74019; 80048; 80053; 82553; 83690; 83735; 84484; 85025; 86580; 86704; 86706; 86769; 86803; 86850; 86900; 86901; 87340; 90935; 93005; 93306; 93970; 94760; C1751; C1752; G0257; J0171; J0360; J1100; J1644; J1815; J1956; J2250; J2405; J2704; J2720; J3010; P9016; Q0162; Q5105; Q9967; S0020; U0002; U0005

== ENCOUNTER 2020-12-05 09:46 | Observation (INO) | payer BC ==
[2020-12-05] MEDS ORDERED: Iopamidol-370 76% 500 ML 1 ML ONE (09:59)
[2020-12-05 10:34] LABS: Hemoglobin 11.1 g/dL (14.0-18.0); Mean Corpuscular HGB CONC 34.7 g/dL (32.0-36.0); Mean Corpuscular Hemoglobin 31.5 pg (27.0-31.0); Mean Corpuscular Volume 90.8 fL (78.0-98.0); Mean Platelet Volume 8.6 fL (7.4-10.4); Platelet Count 195 thou/uL (130-400); RBC Distribution Width 13.1 % (11.5-14.5); Red Blood Cell (RBC) Count 3.54 mill/uL (4.70-6.10); White Blood Cell (WBC) Count 7.6 thou/uL (4.8-10.8)
[2020-12-05 10:51] LABS: Magnesium 1.9 mg/dL (1.6-2.6); Phosphorus 3.5 mg/dL (2.3-4.7)
[2020-12-05 10:52] LABS: ALT (SGPT) 16 U/L (8-55); AST (SGOT) 15 U/L (5-34); Albumin 3.7 g/dL (3.4-4.8); Alkaline Phosphatase 93 U/L (40-110); Anion Gap 15 mmol/L (10-20); BUN (Urea Nitrogen) 43 mg/dL (8.4-25.7); Bilirubin, Total 0.3 mg/dL (0.2-1.2); CK (CPK) 95 U/L (30-200); Calc. Creatinine Clearance 0 mL/min (70-130); Calcium 9.3 mg/dL (7.8-10.44); Carbon Dioxide 24 mmol/L (23-31); Chloride 103 mmol/L (98-107); Globulin 3.3 g/dL (2.4-3.5); Glucose 201 mg/dL (80-115); Lipase 204 U/L (8-78); Potassium 4.5 mmol/L (3.5-5.1); Sodium 137 mmol/L (136-145)
[2020-12-05 11:00] LABS: Elliptocytes SLIGHT = 2-5 cells (100X) (0-1/hpf); Eosinophils 4 % (0-10); Lymphocytes 31 % (21-51); MDiff Complete? YES; Monocytes 4 % (0-10); Neutrophil 60 % (42-75); Platelet Morphology Comment Appears Adequate; Poikilocytosis SLIGHT = 6-15 cells (100X) (0-5/hpf)
[2020-12-05] MEDS ORDERED: Aspirin Chewable 81 MG TAB ONE (12:16)
[2020-12-05 13:41] LABS: Troponin I 0.026 ng/mL (< 0.028)
[2020-12-05] MEDS ORDERED: Acetaminophen 650 MG Suppository PR PRN (15:39)
[2020-12-05] MEDS ORDERED: Acetaminophen 325 MG TAB PO PRN (15:39)
[2020-12-05] MEDS ORDERED: Magnesium 2 GM/50 ML 2 GM in Premix Bag 1 BAG IVPB SCH (15:45)
[2020-12-05] MEDS ORDERED: Aspirin 325 mg Enteric Coated Tablet PO SCH (15:45)
[2020-12-05] MEDS ORDERED: Sodium Chloride 0.9% 500 ML IV SCH (15:45)
[2020-12-05 16:46] LABS: Troponin I 0.022 ng/mL (< 0.028)
[2020-12-05] MEDS ORDERED: Dextrose 50% Abboject 50 ML SYRINGE SLOW IVP PRN (17:05)
[2020-12-05] MEDS ORDERED: HumaLOG 300 UNITS/3 ML VIAL SC PRN ×2 (17:05)
[2020-12-05] MEDS ORDERED: Dextrose 5% in Water 1,000 ML IV PRN (17:05)
[2020-12-05 17:58] VITALS: BMI 33.1
[2020-12-05] MEDS ORDERED: Rosuvastatin 20 MG TAB PO SCH (21:00)
[2020-12-05 23:42] LABS: SARS-CoV-2 PCR by NAA Not Detected (NotDetected)
[2020-12-06 02:14] LABS: Bacteria/HPF None Seen HPF (None Seen); Bilirubin Negative (Negative); Blood, Urine Negative (Negative); Clarity Clear (Clear); Glucose, Urine (Dipstick) Normal (Negative); Ketone, Urine Negative (Negative); Leukocyte Negative Leu/uL (Negative); Nitrite Negative (Negative); Protein, Urine (Dipstick) 200 mg/dL (Neg-Trace); RBC/HPF 0-3 HPF (0-3); Squamous Epithelial None Seen HPF (0-3); Urobilinogen Normal mg/dL (Less than 2); WBC/HPF 0-3 HPF (0-3)
[2020-12-06 03:37] LABS: #Basophils 0.1 thou/uL (0.0-0.2); #Eosinphils 0.7 thou/uL (0.0-0.7); #Lymphocytes 2.3 thou/uL (1.20-3.40); #Monocytes 0.7 thou/uL (0.11-0.59); #Neutrophils 4.7 thou/uL (1.40-6.50); %Basophils 0.7 % (0.0-1.0); %Lymphocytes 27.6 % (21.0-51.0); %Monocytes 7.7 % (0.0-10.0); Hemoglobin 10.4 g/dL (14.0-18.0); Mean Corpuscular HGB CONC 34.6 g/dL (32.0-36.0); Mean Corpuscular Hemoglobin 31.5 pg (27.0-31.0); Mean Platelet Volume 8.2 fL (7.4-10.4); Platelet Count 193 thou/uL (130-400); RBC Distribution Width 13.2 % (11.5-14.5); Red Blood Cell (RBC) Count 3.31 mill/uL (4.70-6.10); White Blood Cell (WBC) Count 8.4 thou/uL (4.8-10.8)
[2020-12-06 03:43] LABS: Hemoglobin A1c 6.5 % (4.0-6.0)
[2020-12-06 04:05] LABS: Anion Gap 16 mmol/L (10-20); BUN (Urea Nitrogen) 54 mg/dL (8.4-25.7); Calc. Creatinine Clearance 19 mL/min (70-130); Calcium 9.4 mg/dL (7.8-10.44); Carbon Dioxide 22 mmol/L (23-31); Cardiac Risk 3.9 (Less than 4.5); Chloride 102 mmol/L (98-107); Cholesterol 145 mg/dl (< 200 Desired); Glucose 149 mg/dL (80-115); HDL Cholesterol 37 mg/dL (>60 Neg Risk); Potassium 3.9 mmol/L (3.5-5.1); Sodium 136 mmol/L (136-145)
[2020-12-06 04:16] LABS: LDL Cholesterol, Calculated 79 mg/dL; Triglycerides 149 mg/dL (Less than 150)
[2020-12-06] MEDS ORDERED: Aspirin 81 mg Enteric Coated Tablet PO SCH ×2 (09:00)
[2020-12-06] MEDS ORDERED: Heparin 10,000 UNITS/ 10 ML VIAL ONE (09:10)
[2020-12-06] MEDS ORDERED: Metoprolol Tartrate 25 MG TAB PO SCH ×3 (12:30→21:00)
[2020-12-06] MEDS ORDERED: Amlodipine 5 MG TAB PO SCH (12:30)
[2020-12-06] MEDS ORDERED: Amlodipine 10 MG TAB PO SCH (15:00)
[2020-12-06 15:51] VITALS: BP 144/65; TEMP 98.7
[2020-12-07] MEDS ORDERED: Amlodipine 5 MG TAB PO SCH (09:00)
== END 2020-12-06 16:52 | disposition home or self-care (01) ==
LOC: ERS 09:46 → 2NO 14:28
PROVIDERS: ADMIT Internal Medicine; ATTEND Internal Medicine
DX: R55 Syncope and collapse (principal); R42 Dizziness and giddiness; I12.0 Hypertensive chronic kidney disease with stage 5 chronic kidney disease or end stage renal disease; E11.22 Type 2 diabetes mellitus with diabetic chronic kidney disease; N18.6 End stage renal disease; D63.1 Anemia in chronic kidney disease; E78.5 Hyperlipidemia, unspecified; N40.0 Benign prostatic hyperplasia without lower urinary tract symptoms; I70.0 Atherosclerosis of aorta; R94.31 Abnormal electrocardiogram [ECG] [EKG]; K31.89 Other diseases of stomach and duodenum; G89.29 Other chronic pain; R10.9 Unspecified abdominal pain; Z87.891 Personal history of nicotine dependence; Z79.82 Long term (current) use of aspirin; Z79.899 Other long term (current) drug therapy; Z88.0 Allergy status to penicillin; Z99.2 Dependence on renal dialysis; Z20.822 Contact with and (suspected) exposure to COVID-19
CPT/HCPCS: 36415; 36416; 71045; 74177; 80048; 80053; 80061; 81003; 81015; 82550; 83036; 83690; 83735; 84100; 84443; 84484; 85025; 90935; 93005; 93010; 94760; 96365; G0257; G0378; J1644; J1815; J3475; Q9967; U0003; U0005

== ENCOUNTER 2021-05-21 12:03 | Outpatient (CLI) | payer MEDICARE | END 2021-05-21 12:04 | disposition home or self-care (01) | LOC: BICULT 12:03 | PROVIDERS: ATTEND Urology | DX: N20.0 Calculus of kidney (principal); N28.1 Cyst of kidney, acquired | CPT/HCPCS: 76770 ==

== ENCOUNTER 2022-07-06 08:17 | Outpatient (CLI) | payer MEDICARE | END 2022-07-06 08:18 | disposition home or self-care (01) | LOC: TBSIIMAG 08:17 | PROVIDERS: ATTEND Urology | DX: N18.9 Chronic kidney disease, unspecified (principal); R97.20 Elevated prostate specific antigen [PSA] | CPT/HCPCS: 72195 ==

== ENCOUNTER 2022-10-01 15:42 | Outpatient (CLI) | payer OTHER | END 2022-10-01 15:43 | disposition home or self-care (01) | LOC: BICRAD 15:42 | PROVIDERS: ATTEND Urology | DX: N20.0 Calculus of kidney (principal); N28.1 Cyst of kidney, acquired; R97.20 Elevated prostate specific antigen [PSA] | CPT/HCPCS: 74018 ==

== ENCOUNTER 2023-04-13 09:23 | Inpatient (IN) | payer OTHER ==
[2023-04-13 10:44] LABS: #Basophils 0.1 thou/uL (0.0-0.2); #Eosinphils 0.4 thou/uL (0.0-0.7); #Monocytes 0.7 thou/uL (0.11-0.59); #Neutrophils 4.4 thou/uL (1.40-6.50); %Basophils 0.8 % (0.0-1.0); %Eosinophils 5.8 % (0.0-10.0); %Lymphocytes 23.8 % (21.0-51.0); %Neutrophils 60.2 % (42.0-75.0); Hematocrit 36.6 % (42.0-52.0); Hemoglobin 12.3 g/dL (14.0-18.0); Mean Corpuscular HGB CONC 33.6 g/dL (32.0-36.0); Mean Corpuscular Hemoglobin 31.9 pg (27.0-31.0); Mean Corpuscular Volume 94.8 fl (78.0-98.0); Mean Platelet Volume 10.5 fL (7.4-10.4); Platelet Count 188 10x3/uL (130-400); RBC Distribution Width 13.2 % (11.5-14.5); Red Blood Cell (RBC) Count 3.86 mill/uL (4.70-6.10); White Blood Cell (WBC) Count 7.3 10x3/uL (4.8-10.8)
[2023-04-13 11:04] LABS: ALT (SGPT) 11 U/L (8-55); AST (SGOT) 17 U/L (5-34); Albumin 4.2 g/dL (3.4-4.8); Alkaline Phosphatase 63 U/L (40-110); Anion Gap 21 mmol/L (10-20); BUN (Urea Nitrogen) 66 mg/dL (8.4-25.7); Bilirubin, Total 0.5 mg/dL (0.2-1.2); Calc. Creatinine Clearance 0 mL/min (70-130); Calcium 9.8 mg/dL (7.8-10.44); Carbon Dioxide 26 mmol/L (23-31); Chloride 97 mmol/L (98-107); Estimated GFR 3; Glucose 150 mg/dL (80-115); Magnesium 2.1 mg/dL (1.6-2.6); Potassium 4.6 mmol/L (3.5-5.1); Protein, Total 8.2 g/dL (5.8-8.1); Sodium 139 mmol/L (136-145)
[2023-04-13] MEDS ORDERED: Acetaminophen 325 MG TAB PO PRN (12:17)
[2023-04-13] MEDS ORDERED: Dextrose 50% Abboject 50 ML SYRINGE SLOW IVP PRN (12:34)
[2023-04-13] MEDS ORDERED: HumaLOG 300 UNITS/3 ML VIAL SC PRN ×2 (12:34)
[2023-04-13] MEDS ORDERED: Glucagon 1 MG/ML KIT IM PRN (12:34)
[2023-04-13] MEDS ORDERED: Dextrose 5% in Water 1,000 ML IV PRN (12:34)
[2023-04-13 13:04] LABS: HBSAg Index 0.17 S/CO (0-0.99); Hep B Core Total Ab Non-Reactive (NonReactive); Hep B Core Total Index 0.06 S/CO (0-0.79); Hep B Surf Ag Non-Reactive S/CO (NonReactive); Hep C IgG Ab Non-Reactive S/CO (NonReactive); Hep C Index 0.09 S/CO (0-0.79)
[2023-04-13] MEDS ORDERED: Tuberculin PPD 0.1 ML VIAL I-DERMAL SCH ×2 (13:30)
[2023-04-13 14:25] LABS: Hep B Surf AB Indeterminate (NonReactive)
[2023-04-13 14:26] LABS: HBSAB Concentration 8.28 mIU/mL
[2023-04-13] MEDS: Heparin 5,000 UNITS/ML VIAL SC SCH ×2 (19:04→22:05)
[2023-04-13 19:43] LABS: Glucose 86 mg/dL (80-115)
[2023-04-13] MEDS ORDERED: Tamsulosin HCl 0.4 MG CAP PO SCH (21:00)
[2023-04-13 21:53] LABS: Glucose 211 mg/dL (80-115)
[2023-04-13] MEDS: Metoprolol Tartrate 25 MG TAB PO SCH (22:00)
[2023-04-13] MEDS: Gabapentin 300 MG CAP PO SCH (22:00)
[2023-04-13] MEDS: Famotidine 20 MG TAB PO SCH (22:00)
[2023-04-13 22:37] VITALS: BMI 35.9
[2023-04-14 06:32] LABS: #Basophils 0.1 thou/uL (0.0-0.2); #Eosinphils 0.4 thou/uL (0.0-0.7); #Monocytes 0.7 thou/uL (0.11-0.59); #Neutrophils 3.2 thou/uL (1.40-6.50); %Eosinophils 7.1 % (0.0-10.0); %Lymphocytes 27.1 % (21.0-51.0); %Monocytes 11.8 % (0.0-10.0); %Neutrophils 52.7 % (42.0-75.0); Hematocrit 33.2 % (42.0-52.0); Hemoglobin 10.9 g/dL (14.0-18.0); Mean Corpuscular HGB CONC 32.8 g/dL (32.0-36.0); Mean Corpuscular Hemoglobin 31.2 pg (27.0-31.0); Mean Corpuscular Volume 95.1 fl (78.0-98.0); Mean Platelet Volume 10.8 fL (7.4-10.4); Platelet Count 187 10x3/uL (130-400); RBC Distribution Width 13.1 % (11.5-14.5); Red Blood Cell (RBC) Count 3.49 mill/uL (4.70-6.10)
[2023-04-14 06:57] LABS: Anion Gap 18 mmol/L (10-20); BUN (Urea Nitrogen) 34 mg/dL (8.4-25.7); Calc. Creatinine Clearance 13 mL/min (70-130); Calcium 9.1 mg/dL (7.8-10.44); Carbon Dioxide 26 mmol/L (23-31); Chloride 96 mmol/L (98-107); Estimated GFR 5; Glucose 130 mg/dL (80-115); Potassium 3.9 mmol/L (3.5-5.1); Sodium 136 mmol/L (136-145)
[2023-04-14] MEDS: Metoprolol Tartrate 25 MG TAB PO SCH ×2 (08:46→20:13)
[2023-04-14] MEDS: Gabapentin 300 MG CAP PO SCH ×3 (08:46→20:14)
[2023-04-14] MEDS: Heparin 5,000 UNITS/ML VIAL SC SCH ×3 (08:49→20:12)
[2023-04-14] MEDS ORDERED: Losartan 25 MG TAB PO SCH (14:00)
[2023-04-14] MEDS ORDERED: Aspirin 81 mg Enteric Coated Tablet PO SCH (14:00)
[2023-04-14] MEDS ORDERED: Doxazosin Mesylate 4 MG TAB PO SCH (14:00)
[2023-04-14] MEDS ORDERED: Isosorbide Mononitrate 60 MG ER.TAB PO SCH (14:00)
[2023-04-14] MEDS ORDERED: Allopurinol 100 MG TAB PO SCH (14:00)
[2023-04-14] MEDS ORDERED: Minoxidil 2.5 MG TAB PO SCH (14:00)
[2023-04-14] MEDS ORDERED: Folic Acid/Vit B Comp W-C PO SCH (14:00)
[2023-04-14] MEDS ORDERED: Dutasteride 0.5 MG CAP PO SCH (14:00)
[2023-04-14] MEDS: Furosemide 80 MG TAB PO SCH (17:26)
[2023-04-14] MEDS: Rosuvastatin 10 MG TAB PO SCH (20:13)
[2023-04-14] MEDS: Tamsulosin HCl 0.4 MG CAP PO SCH (20:13)
[2023-04-14] MEDS: Losartan 25 MG TAB PO SCH (20:13)
[2023-04-14] MEDS: Famotidine 20 MG TAB PO SCH (20:14)
[2023-04-14] MEDS ORDERED: Furosemide 80 MG TAB PO SCH (21:00)
[2023-04-15] MEDS: Furosemide 80 MG TAB PO SCH ×2 (05:57→15:10)
[2023-04-15 06:11] LABS: #Basophils 0.1 thou/uL (0.0-0.2); #Eosinphils 0.5 thou/uL (0.0-0.7); #Monocytes 0.6 thou/uL (0.11-0.59); #Neutrophils 2.7 thou/uL (1.40-6.50); %Basophils 1.1 % (0.0-1.0); %Eosinophils 8.1 % (0.0-10.0); %Lymphocytes 31.6 % (21.0-51.0); %Monocytes 10.8 % (0.0-10.0); Hematocrit 31.9 % (42.0-52.0); Hemoglobin 10.7 g/dL (14.0-18.0); Mean Corpuscular HGB CONC 33.5 g/dL (32.0-36.0); Mean Corpuscular Hemoglobin 31.8 pg (27.0-31.0); Mean Corpuscular Volume 94.7 fl (78.0-98.0); Mean Platelet Volume 10.7 fL (7.4-10.4); Platelet Count 189 10x3/uL (130-400); RBC Distribution Width 12.9 % (11.5-14.5); Red Blood Cell (RBC) Count 3.37 mill/uL (4.70-6.10); White Blood Cell (WBC) Count 5.5 10x3/uL (4.8-10.8)
[2023-04-15 06:39] LABS: Anion Gap 18 mmol/L (10-20); BUN (Urea Nitrogen) 48 mg/dL (8.4-25.7); Calc. Creatinine Clearance 11 mL/min (70-130); Calcium 8.8 mg/dL (7.8-10.44); Carbon Dioxide 27 mmol/L (23-31); Chloride 96 mmol/L (98-107); Estimated GFR 4; Glucose 164 mg/dL (80-115); Sodium 137 mmol/L (136-145)
[2023-04-15] MEDS: Gabapentin 300 MG CAP PO SCH ×3 (08:26→20:36)
[2023-04-15] MEDS: Doxazosin Mesylate 4 MG TAB PO SCH (08:27)
[2023-04-15] MEDS: Allopurinol 100 MG TAB PO SCH (08:27)
[2023-04-15] MEDS: Losartan 25 MG TAB PO SCH ×2 (08:27→20:37)
[2023-04-15] MEDS: Folic Acid/Vit B Comp W-C PO SCH (08:28)
[2023-04-15] MEDS: Aspirin 81 mg Enteric Coated Tablet PO SCH (08:28)
[2023-04-15] MEDS: Metoprolol Tartrate 25 MG TAB PO SCH ×2 (08:28→20:36)
[2023-04-15] MEDS: Heparin 5,000 UNITS/ML VIAL SC SCH ×3 (08:29→20:36)
[2023-04-15] MEDS: Minoxidil 2.5 MG TAB PO SCH (08:29)
[2023-04-15] MEDS: Dutasteride 0.5 MG CAP PO SCH (08:29)
[2023-04-15] MEDS: Isosorbide Mononitrate 60 MG ER.TAB PO SCH (08:30)
[2023-04-15] MEDS ORDERED: Tamsulosin HCl 0.4 MG CAP PO SCH (09:00)
[2023-04-15 12:07] LABS: Glucose 127 mg/dL (80-115)
[2023-04-15] MEDS: Rosuvastatin 10 MG TAB PO SCH (20:36)
[2023-04-15] MEDS: Famotidine 20 MG TAB PO SCH (20:36)
[2023-04-15] MEDS: Tamsulosin HCl 0.4 MG CAP PO SCH (20:36)
[2023-04-16] MEDS: Furosemide 80 MG TAB PO SCH ×2 (05:24→14:12)
[2023-04-16 06:39] LABS: #Basophils 0.1 thou/uL (0.0-0.2); #Eosinphils 0.5 thou/uL (0.0-0.7); #Monocytes 0.7 thou/uL (0.11-0.59); #Neutrophils 2.6 thou/uL (1.40-6.50); %Basophils 1.2 % (0.0-1.0); %Lymphocytes 35.2 % (21.0-51.0); %Monocytes 11.6 % (0.0-10.0); %Neutrophils 43.8 % (42.0-75.0); Hematocrit 34.9 % (42.0-52.0); Hemoglobin 11.6 g/dL (14.0-18.0); Mean Corpuscular HGB CONC 33.2 g/dL (32.0-36.0); Mean Corpuscular Hemoglobin 31.9 pg (27.0-31.0); Mean Corpuscular Volume 95.9 fl (78.0-98.0); Mean Platelet Volume 10.7 fL (7.4-10.4); Platelet Count 196 10x3/uL (130-400); RBC Distribution Width 12.9 % (11.5-14.5); Red Blood Cell (RBC) Count 3.64 mill/uL (4.70-6.10); White Blood Cell (WBC) Count 5.9 10x3/uL (4.8-10.8)
[2023-04-16 07:08] LABS: Anion Gap 16 mmol/L (10-20); BUN (Urea Nitrogen) 35 mg/dL (8.4-25.7); Calc. Creatinine Clearance 14 mL/min (70-130); Calcium 9.3 mg/dL (7.8-10.44); Carbon Dioxide 25 mmol/L (23-31); Chloride 99 mmol/L (98-107); Estimated GFR 6; Glucose 138 mg/dL (80-115); Potassium 4.1 mmol/L (3.5-5.1); Sodium 136 mmol/L (136-145)
[2023-04-16 08:09] LABS: Glucose 139 mg/dL (80-115)
[2023-04-16] MEDS: Minoxidil 2.5 MG TAB PO SCH (08:32)
[2023-04-16] MEDS: Folic Acid/Vit B Comp W-C PO SCH (08:32)
[2023-04-16] MEDS: Aspirin 81 mg Enteric Coated Tablet PO SCH (08:33)
[2023-04-16] MEDS: Metoprolol Tartrate 25 MG TAB PO SCH ×2 (08:33→20:25)
[2023-04-16] MEDS: Isosorbide Mononitrate 60 MG ER.TAB PO SCH (08:33)
[2023-04-16] MEDS: Gabapentin 300 MG CAP PO SCH ×3 (08:33→20:25)
[2023-04-16] MEDS: Allopurinol 100 MG TAB PO SCH (08:33)
[2023-04-16] MEDS: Losartan 25 MG TAB PO SCH ×2 (08:33→20:25)
[2023-04-16] MEDS: Doxazosin Mesylate 4 MG TAB PO SCH (08:34)
[2023-04-16] MEDS: Heparin 5,000 UNITS/ML VIAL SC SCH ×3 (08:35→20:25)
[2023-04-16] MEDS ORDERED: Heparin 10,000 UNITS/ 10 ML VIAL ONE (08:43)
[2023-04-16] MEDS ORDERED: READ PPD TEST SITE PO SCH (09:00)
[2023-04-16] MEDS: Dutasteride 0.5 MG CAP PO SCH (10:28)
[2023-04-16] MEDS ORDERED: Guaifenesin DM 100-10/5 ML UDCUP PO PRN (10:54)
[2023-04-16] MEDS ORDERED: Polyethylene Glycol 3350 17 GM Packet PO PRN (11:46)
[2023-04-16] MEDS: Tamsulosin HCl 0.4 MG CAP PO SCH (20:25)
[2023-04-16] MEDS: Famotidine 20 MG TAB PO SCH (20:25)
[2023-04-16] MEDS: Rosuvastatin 10 MG TAB PO SCH (20:25)
[2023-04-17] MEDS: Furosemide 80 MG TAB PO SCH ×2 (05:36→13:25)
[2023-04-17 06:16] LABS: #Basophils 0.1 thou/uL (0.0-0.2); #Eosinphils 0.6 thou/uL (0.0-0.7); #Monocytes 0.6 thou/uL (0.11-0.59); #Neutrophils 3.4 thou/uL (1.40-6.50); %Basophils 0.9 % (0.0-1.0); %Eosinophils 8.5 % (0.0-10.0); %Lymphocytes 28.7 % (21.0-51.0); %Monocytes 9.3 % (0.0-10.0); %Neutrophils 52.3 % (42.0-75.0); Hemoglobin 11.3 g/dL (14.0-18.0); Mean Corpuscular HGB CONC 33.2 g/dL (32.0-36.0); Mean Corpuscular Hemoglobin 31.5 pg (27.0-31.0); Mean Corpuscular Volume 94.7 fl (78.0-98.0); Mean Platelet Volume 10.6 fL (7.4-10.4); Platelet Count 207 10x3/uL (130-400); Red Blood Cell (RBC) Count 3.59 mill/uL (4.70-6.10); White Blood Cell (WBC) Count 6.5 10x3/uL (4.8-10.8)
[2023-04-17 06:53] LABS: Anion Gap 17 mmol/L (10-20); BUN (Urea Nitrogen) 51 mg/dL (8.4-25.7); Calc. Creatinine Clearance 11 mL/min (70-130); Calcium 9.6 mg/dL (7.8-10.44); Carbon Dioxide 26 mmol/L (23-31); Chloride 99 mmol/L (98-107); Estimated GFR 4; Glucose 148 mg/dL (80-115); Potassium 4.6 mmol/L (3.5-5.1); Sodium 137 mmol/L (136-145)
[2023-04-17 13:13] VITALS: BP 181/76; TEMP 98.2
[2023-04-17] MEDS: Folic Acid/Vit B Comp W-C PO SCH (13:13)
[2023-04-17] MEDS: Metoprolol Tartrate 25 MG TAB PO SCH (13:14)
[2023-04-17] MEDS: Gabapentin 300 MG CAP PO SCH (13:14)
[2023-04-17] MEDS: Isosorbide Mononitrate 60 MG ER.TAB PO SCH (13:14)
[2023-04-17] MEDS: Minoxidil 2.5 MG TAB PO SCH (13:14)
[2023-04-17] MEDS: Losartan 25 MG TAB PO SCH (13:15)
[2023-04-17] MEDS: Dutasteride 0.5 MG CAP PO SCH (13:15)
[2023-04-17] MEDS: Aspirin 81 mg Enteric Coated Tablet PO SCH (13:16)
[2023-04-17] MEDS: Doxazosin Mesylate 4 MG TAB PO SCH (13:16)
[2023-04-17] MEDS: Heparin 5,000 UNITS/ML VIAL SC SCH (13:22)
[2023-04-17] MEDS: Allopurinol 100 MG TAB PO SCH (13:23)
== END 2023-04-17 15:04 | disposition home or self-care (01) | DRG 682 ==
LOC: ERS 09:23 → T4-B 17:28 → INTOOBSV 17:28 → OBSVTOIN 04-16 10:54
PROVIDERS: ADMIT Hospitalist; ATTEND Hospitalist
PROC: 5A1D70Z Performance of Urinary Filtration, Intermittent, Less than 6 Hours Per Day (ICD-10-PCS; principal; 2023-04-13)
DX: I12.0 Hypertensive chronic kidney disease with stage 5 chronic kidney disease or end stage renal disease (principal); N18.6 End stage renal disease; E11.22 Type 2 diabetes mellitus with diabetic chronic kidney disease; N40.0 Benign prostatic hyperplasia without lower urinary tract symptoms; E78.5 Hyperlipidemia, unspecified; N20.0 Calculus of kidney; D63.1 Anemia in chronic kidney disease; E66.9 Obesity, unspecified; Z88.0 Allergy status to penicillin; Z79.899 Other long term (current) drug therapy; Z99.2 Dependence on renal dialysis; Z79.82 Long term (current) use of aspirin; Z98.890 Other specified postprocedural states; Z68.35 Body mass index [BMI] 35.0-35.9, adult
CPT/HCPCS: 36415; 36416; 71045; 80048; 80053; 83735; 85025; 86704; 90935; 99284; G0257; J1644; J1815